=== PATIENT | male | born 1995 | race Caucasian/White ===

== ENCOUNTER 2018-02-08 13:48 | Emergency (ER) | payer OTHER ==
[~2018-02-08] VITALS: Ht 162.6 cm; Wt 68.2 kg
[2018-02-08] MEDS ORDERED: ASPI-988 PO (13:56)
[2018-02-08] MEDS ORDERED: ASPIRIN 81 MG CHEWABLE TABLET PO ONE (15:00)
[2018-02-08 15:34] LABS: BASOPHILS % (AUTO) 0.6 % (0.0-2.0); EOSINOPHILS % (AUTO) 0.3 % (1.0-6.0); HEMATOCRIT 43.4 % (41-53); HEMOGLOBIN 15.2 g/dL (13.5-17.5); LYMPHOCYTES % (AUTO) 16.6 % (22.0-44.0); MEAN CORPUSCULAR HEMOGLOBIN 31.8 pg (26.0-34.0); MEAN CORPUSCULAR HGB CONC 35.1 G/dL (31.0-37.0); MEAN CORPUSCULAR VOLUME 91 fL (80-100); MONOCYTES # (AUTO) 0.6 K/uL (0.1-1.0); MONOCYTES % (AUTO) 4.8 % (2.0-9.0); NEUTROPHILS # (AUTO) 9.2 K/uL (1.8-7.7); NEUTROPHILS % (AUTO) 77.7 % (40.0-70.0); PLATELET COUNT (AUTO) 260 K/uL (150-450); RED BLOOD CELL COUNT(AUTO) 4.79 MIL/uL (4.50-5.90); RED CELL DISTRIBUTION WIDTH 13.4 % (11.5-14.5)
[2018-02-08 15:42] LABS: ANION GAP 12 mmol/L (8-16); CALCIUM, TOTAL 8.8 mg/dL (8.8-10.5); CARBON DIOXIDE 25 mmol/L (22-29); CHLORIDE 101 mmol/L (98-107); CREATININE 0.91 mg/dL (0.60-1.30); GLOMERULAR FILTR. RATE CALC > 60 mL/min (>60); GLUCOSE,RANDOM 74 mg/dL (70-110); POTASSIUM 3.6 mmol/L (3.5-5.1); SODIUM SERUM 138 mmol/L (136-145); UREA NITROGEN, BLOOD 13 mg/dL (7-18)
[2018-02-08 16:06] VITALS: BP 128/80
[2018-02-08 16:07] LABS: ALANINE AMINOTRANSFERASE 37 U/L (12-78); ALBUMIN 4.5 g/dL (3.4-5.0); ALKALINE PHOSPHATASE 71 U/L (46-116); ASPARTATE AMINOTRANSFERASE 37 U/L (15-37); BILIRUBIN,TOTAL 0.4 mg/dL (0.1-1.0); CREATINE KINASE MB 1.8 ng/mL (0-5); CREATINE KINASE, TOTAL 335 U/L (39-308); TOTAL PROTEIN, SERUM 8.7 g/dL (6.4-8.2)
[2018-02-08 16:29] LABS: THYROID STIMULATING HORMONE 0.76 uIU/mL (0.36-3.74)
== END 2018-02-08 17:27 | disposition home or self-care (01) ==
LOC: EMS 13:49
DX: R07.89 Other chest pain (principal); F41.9 Anxiety disorder, unspecified; R00.2 Palpitations; R42 Dizziness and giddiness; F17.210 Nicotine dependence, cigarettes, uncomplicated; F12.90 Cannabis use, unspecified, uncomplicated
CPT/HCPCS: 84443; 93005; 99285